=== PATIENT | female | born 1950 | race Caucasian/White ===

== ENCOUNTER → 2016-09-30 | Outpatient (CLI) | payer OTHER ==
[~2016-09-30] MED LIST: NAPR500T PO
--- NOTE | 2016-09-30 12:21 | RADRPT ---
EXAM DATE/TIME: 09/30/2016 10:14 [facility] COMPARISON: No previous studies available for comparison. INDICATIONS : Right lower back pain on and off for the past few months. No prior trauma. MEDICAL HISTORY : None. SURGICAL HISTORY : None. ENCOUNTER: Initial ACUITY: 3 months PAIN SCORE: 10/10 LOCATION: Right lumbar. FINDINGS: There are four lumbar type vertebral bodies. There is significant disc space narrowing at L4-S1. Th ere is no acute fracture, spondylolisthesis or spondylolysis. CONCLUSION: 1. Significant disc space narrowing at L4-S1. 2. No acute compression fracture, spondylolisthesis or spondylolysis. 3. Four lumbar-type vertebral bodies. Raymond Saleh MD on September 30, 2016 at 11:36 Board Certified Radiologist. This report was verified electronically.
== END ==
LOC: HRAD 08:55
PROVIDERS: ATTEND Family Medicine
DX: R10.9 Unspecified abdominal pain (principal); R10.2 Pelvic and perineal pain; M54.5 Low back pain
CPT/HCPCS: 72110

== ENCOUNTER → 2016-10-03 | Outpatient (CLI) | payer OTHER ==
--- NOTE | 2016-10-03 16:08 | RADRPT ---
EXAM DATE/TIME: 10/03/2016 15:25 [facility] COMPARISON: No previous studies available for comparison. INDICATIONS : Back pain. MEDICAL HISTORY : Back pain. SURGICAL HISTORY : Hysterectomy. Oophorectomy. Left foot surgery. ENCOUNTER: Initial ACUITY: 1 day PAIN SCORE: 3/10 LOCATION: Right lower quadrant AREA EVALUATED: Posterior right back pain. FINDINGS: MASSES: None. FLUID COLLECTIONS: None. OTHER: Negative. CONCLUSION: 1. I see no definite abnormality to explain the patient's pain. If the symptoms persist CT imaging wi th oral and IV contrast would be warranted for further assessment. Jayden Elder MD on October 03, 2016 at 16:05 Board Certified Radiologist. This report was verified electronically.
--- NOTE | 2016-10-03 16:31 | RADRPT ---
EXAM DATE/TIME: 10/03/2016 15:28 [facility] COMPARISON: ULTRASOUND SOFT TISSUE, October 03, 2016, 15:25. INDICATIONS : Back pain. MEDICAL HISTORY : Posterior right back pain. SURGICAL HISTORY : Hysterectomy. Oophorectomy. Left foot surgery. ENCOUNTER: Initial ACUITY: 1 day PAIN SCORE: 3/10 LOCATION: Bilateral flank PEAK FLOW VELOCITIES (cm/sec): AORTA: PROXIMAL: 97.3 MID: 102.9 DISTAL: 133.7 RIGHT RENAL ARTERY: PROXIMAL: 151.2 MID: 157.8 DISTAL: Not visualized. RENAL ARTERY RATIO: 1.2 ARCUATE ARTERY RESISTIVE INDEX: Upper: 0.6 Mid: 0.7 Lower: 0.7 LEFT RENAL ARTERY: PROXIMAL: 147.4 MID: 157.8 DISTAL: 104.2 RENAL ARTERY RATIO: 1.2 ARCUATE ARTERY RESISTIVE INDEX: Upper: 0.7 Mid: 0.7 Lower: 0.7 FINDINGS: Renal artery velocities and resistive indices as listed above. CONCLUSION: 1. No definite findings to indicate renal artery stenosis are evident by Doppler ultrasound. Jayden Elder MD on October 03, 2016 at 16:20 Board Certified Radiologist. This report was verified electronically.
== END ==
LOC: HRAD 15:00
PROVIDERS: ATTEND Family Medicine
DX: M54.5 Low back pain (principal)
CPT/HCPCS: 76999; 93975